=== PATIENT | female | born 1955 | race Caucasian/White ===

== ENCOUNTER → 2019-12-26 09:50 | Outpatient (BNVA) | payer MEDICARE, OTHER, SELFPAY | PROVIDERS: Family Provider Family Medicine; PCP Family Medicine; Visit Provider Nurse Practitioner Family | DX: I10 Essential (primary) hypertension (principal); E83.42 Hypomagnesemia | CPT/HCPCS: 80053; 80061; 82306; 82728; 83550; 83735; 84439; 84443; 85025 ==